=== PATIENT | female | born 1980 | race Caucasian/White ===

== ENCOUNTER 2022-05-27 03:04 | Emergency (ER) | payer MEDICAID ==
[~2022-05-27] VITALS: Ht 154.9 cm; Wt 90.9 kg
[2022-05-27 03:10] VITALS: BP 136/81
[2022-05-27] MEDS ORDERED: THIA100T80 PO (03:25)
[2022-05-27] MEDS ORDERED: FOLI-130 PO (03:25)
[2022-05-27] MEDS ORDERED: LANS30CA56 PO (03:25)
[2022-05-27] MEDS ORDERED: SODIUM CHLORIDE 0.9% 1,000 ML IV ONE (03:45)
[2022-05-27] MEDS ORDERED: ONDANSETRON HCL 4 MG/2 ML VIAL IVP ONE (03:45)
[2022-05-27 04:14] LABS: BASOPHILS % (AUTO) 1.2 % (0.0-2.0); EOSINOPHILS % (AUTO) 1.5 % (1.0-6.0); HEMATOCRIT 27.6 % (36-46); HEMOGLOBIN 9.3 g/dL (12.0-16.0); LYMPHOCYTES # (AUTO) 0.8 K/uL (1.0-4.8); MEAN CORPUSCULAR HEMOGLOBIN 33.7 pg (26.0-34.0); MEAN CORPUSCULAR HGB CONC 33.5 G/dL (31.0-37.0); MEAN CORPUSCULAR VOLUME 101 fL (80-100); MONOCYTES # (AUTO) 0.5 K/uL (0.1-1.0); NEUTROPHILS # (AUTO) 3.5 K/uL (1.8-7.7); NEUTROPHILS % (AUTO) 70.3 % (40.0-70.0); PLATELET COUNT (AUTO) 133 K/uL (150-450); RED BLOOD CELL COUNT(AUTO) 2.75 MIL/uL (4.00-5.20); RED CELL DISTRIBUTION WIDTH 17.6 % (11.5-14.5)
[2022-05-27 04:22] LABS: ANION GAP 9 mmol/L (8-16); CALCIUM, TOTAL 8.2 mg/dL (8.8-10.5); CARBON DIOXIDE 27 mmol/L (22-29); CHLORIDE 103 mmol/L (98-107); CREATININE 0.78 mg/dL (0.60-1.30); GLOMERULAR FILTR. RATE CALC > 60 mL/min (>60); GLUCOSE,RANDOM 97 mg/dL (70-110); POTASSIUM 3.7 mmol/L (3.5-5.1); SODIUM SERUM 139 mmol/L (136-145); UREA NITROGEN, BLOOD 6 mg/dL (7-18)
[2022-05-27 04:33] LABS: ALANINE AMINOTRANSFERASE 21 U/L (12-78); ALBUMIN 2.7 g/dL (3.4-5.0); ALKALINE PHOSPHATASE 175 U/L (46-116); ASPARTATE AMINOTRANSFERASE 87 U/L (15-37); HCG,QUANTITATIVE < 1 mIU/mL (0-6); LIPASE 172 U/L (73-393); TOTAL PROTEIN, SERUM 9.4 g/dL (6.4-8.2)
== END 2022-05-27 05:28 | disposition home or self-care (01) ==
LOC: EMS 03:05
DX: R11.2 Nausea with vomiting, unspecified (principal); K74.60 Unspecified cirrhosis of liver; Z98.890 Other specified postprocedural states
CPT/HCPCS: 99283; 96374; 96361; 80053; 83690; 84702; 85025; 36415; G0480; J2405; J7030

== ENCOUNTER 2022-05-27 21:28 | Emergency (ER) | payer MEDICAID ==
[~2022-05-27] VITALS: Ht 154.9 cm; Wt 90.9 kg
[~2022-05-27 21:28] MED LIST: FOLI-130 PO; LANS30CA56 PO; THIA100T80 PO
[2022-05-27 21:46] VITALS: BP 137/89
[2022-05-28] MEDS ORDERED: LORazepam 1 MG TABLET PO ONE (01:30)
== END 2022-05-28 05:52 | disposition home or self-care (01) ==
LOC: EMS 21:30
DX: F41.9 Anxiety disorder, unspecified (principal); G47.00 Insomnia, unspecified; R10.9 Unspecified abdominal pain; D64.9 Anemia, unspecified; F10.20 Alcohol dependence, uncomplicated; K74.60 Unspecified cirrhosis of liver; Z98.890 Other specified postprocedural states
CPT/HCPCS: 93005; 99283

== ENCOUNTER 2023-02-08 15:49 | Emergency (ER) | payer MEDICAID ==
[~2023-02-08] VITALS: Ht 154.9 cm; Wt 95.5 kg
[~2023-02-08 15:49] MED LIST changes: +LANS-78 PO; -LANS30CA56 PO
[2023-02-08 15:57] VITALS: TEMP 98.8
[2023-02-08 16:06] LABS: COVID AG,FIA SOURCE NASAL SWAB
[2023-02-08 16:32] LABS: RAPID GROUP A STREP NEGATIVE (NEGATIVE)
[2023-02-08 16:39] LABS: INFLUENZA TYPE A NEGATIVE FOR TYPE A (NEGATIVE); INFLUENZA TYPE B NEGATIVE FOR TYPE B (NEGATIVE); SARS-COV2 (COVID) ANTIGEN,FIA Negative (Negative)
[2023-02-08] MEDS ORDERED: OXYMETAZOLINE HCL 0.05% 15 ML NASAL SPRAY NASAL ONE (16:45)
[2023-02-08] MEDS ORDERED: KETOROLAC TROMETHAMINE 30 MG/ML VIAL IM ONE (16:45)
[2023-02-08 17:20] VITALS: BP 139/90; PULSE 82; RESP 18
== END 2023-02-08 17:22 | disposition home or self-care (01) ==
LOC: EMS 15:49
DX: J32.9 Chronic sinusitis, unspecified (principal); F10.20 Alcohol dependence, uncomplicated; F41.9 Anxiety disorder, unspecified; Z98.890 Other specified postprocedural states; Z20.822 Contact with and (suspected) exposure to COVID-19; Y90.9 Presence of alcohol in blood, level not specified
CPT/HCPCS: 99283; 87426; 87430; 87804; 96372; J1885

== ENCOUNTER 2023-02-26 03:48 | Emergency (ER) | payer BC, MEDICAID ==
[~2023-02-26] VITALS: Ht 154.9 cm; Wt 90.0 kg
[2023-02-26 03:51] VITALS: BP 156/95; PULSE 103; RESP 16; TEMP 99.2
[2023-02-26 04:19] LABS: BASOPHILS % (AUTO) 0.5 % (0.0-2.0); HEMATOCRIT 30.6 % (36-46); HEMOGLOBIN 10.3 g/dL (12.0-16.0); LYMPHOCYTES # (AUTO) 1.3 K/uL (1.0-4.8); LYMPHOCYTES % (AUTO) 18.4 % (22.0-44.0); MEAN CORPUSCULAR HEMOGLOBIN 33.5 pg (26.0-34.0); MEAN CORPUSCULAR HGB CONC 33.7 G/dL (31.0-37.0); MEAN CORPUSCULAR VOLUME 100 fL (80-100); NEUTROPHILS # (AUTO) 4.5 K/uL (1.8-7.7); NEUTROPHILS % (AUTO) 66.1 % (40.0-70.0); PLATELET COUNT (AUTO) 138 K/uL (150-450); RED BLOOD CELL COUNT(AUTO) 3.07 MIL/uL (4.00-5.20); RED CELL DISTRIBUTION WIDTH 17.5 % (11.5-14.5); WHITE BLOOD COUNT (AUTO) 6.8 K/uL (4.5-11.0)
[2023-02-26 04:30] LABS: ANION GAP 4 mmol/L (8-16); CALCIUM, TOTAL 8.9 mg/dL (8.8-10.5); CARBON DIOXIDE 31 mmol/L (22-29); CHLORIDE 101 mmol/L (98-107); CREATININE 0.87 mg/dL (0.60-1.30); GLOMERULAR FILTR. RATE CALC > 60 mL/min (>60); GLUCOSE,RANDOM 162 mg/dL (70-110); POTASSIUM 3.8 mmol/L (3.5-5.1); SODIUM SERUM 136 mmol/L (136-145); UREA NITROGEN, BLOOD 7 mg/dL (7-18)
[2023-02-26 04:35] LABS: ALANINE AMINOTRANSFERASE 45 U/L (12-78); ALBUMIN 2.7 g/dL (3.4-5.0); ALKALINE PHOSPHATASE 149 U/L (46-116); ASPARTATE AMINOTRANSFERASE 161 U/L (15-37); BILIRUBIN,TOTAL 1.4 mg/dL (0.1-1.0); TOTAL PROTEIN, SERUM 10.1 g/dL (6.4-8.2)
[2023-02-26 04:37] LABS: ALCOHOL, BLOOD (SERUM) 11 mg/dL (0-10)
== END 2023-02-26 06:23 | disposition home or self-care (01) ==
LOC: EMS 03:49
DX: R11.2 Nausea with vomiting, unspecified (principal); Z53.21 Procedure and treatment not carried out due to patient leaving prior to being seen by health care provider
CPT/HCPCS: 99281; 80053; 84703; 85025; 36415; G0480

== ENCOUNTER 2023-03-16 06:49 | Emergency (ER) | payer BC, MEDICAID ==
[~2023-03-16] VITALS: Ht 154.9 cm; Wt 90.9 kg
[2023-03-16 07:02] VITALS: TEMP 98.9
[2023-03-16 07:48] LABS: COVID AG,FIA SOURCE NASAL SWAB
[2023-03-16 08:15] LABS: SARS-COV2 (COVID) ANTIGEN,FIA Negative (Negative)
[2023-03-16 08:22] LABS: INFLUENZA TYPE A NEGATIVE FOR TYPE A (NEGATIVE); INFLUENZA TYPE B NEGATIVE FOR TYPE B (NEGATIVE)
[2023-03-16 08:26] LABS: RAPID GROUP A STREP NEGATIVE (NEGATIVE)
[2023-03-16 08:45] VITALS: BP 130/79; PULSE 88; RESP 14
[2023-03-16] MEDS ORDERED: AMOX500C2 PO (08:45)
== END 2023-03-16 09:11 | disposition home or self-care (01) ==
LOC: EMS 06:50
DX: J32.9 Chronic sinusitis, unspecified (principal); F10.20 Alcohol dependence, uncomplicated; F41.9 Anxiety disorder, unspecified; Z98.890 Other specified postprocedural states; Z20.822 Contact with and (suspected) exposure to COVID-19; Y90.9 Presence of alcohol in blood, level not specified
CPT/HCPCS: 87430; 87804; 99283